=== PATIENT | male | born 1965 | race Caucasian/White ===

== ENCOUNTER → 2018-02-03 | Emergency (ER) | payer OTHER ==
[~2018-02-03] VITALS: Ht 170.2 cm; Wt 80.3 kg
[~2018-02-03] MED LIST: COZAAR50 MG
== END | disposition home or self-care (01) ==
LOC: ER 06:34
DX: K52.9 Noninfective gastroenteritis and colitis, unspecified (principal)

== ENCOUNTER 2025-05-13 06:15 | Day surgery (SDC) | payer OTHER ==
[2025-05-06 08:32] VITALS: BP 150/100
[2025-05-06 08:54] LABS: BASO % 0.5 % (0.1-1.2); EOS # 0.05 (0.04-0.54); EOS % 0.9 % (0.7-7.0); HEMOGLOBIN 14.2 g/dL (13.7-17.5); LYMPH # 1.54 (1.18-3.74); LYMPH % 27.6 % (19.3-53.1); MEAN CORPUSCULAR HEMOGLOBIN 31.8 pg (25.6-32.2); MONO # 0.46 (0.24-0.82); MONO % 8.2 % (4.7-12.5); NEUT # 3.49 (1.56-6.13); NEUT % 62.6 % (34.0-71.1); PLATELET COUNT 281 K/uL (163-369); RED BLOOD COUNT 4.47 M/uL (4.63-6.08); RED CELL DISTRIBUTION WIDTH 11.9 % (11.6-14.4)
[2025-05-06 09:22] LABS: INR 1.05; PARTIAL THROMBOPLASTIN TIME 26.4 SECONDS (22.0-34.0); PROTHROMBIN TIME 11.4 SECONDS (9.0-11.5)
[2025-05-06 09:26] LABS: ALBUMIN 3.8 gm/dL (3.4-5.0); BILIRUBIN TOTAL 0.54 mg/dL (0.3-1.2); CALCIUM 9.4 mg/dL (8.5-10.1); CREATININE SERUM 1.23 mg/dL (0.70-1.30); GFR 59.82; GLOBULINA 3.4 G/DL (2.4-3.5); POTASSIUM 4.28 mEq/L (3.5-5.1); TOTAL PROTEIN 7.2 gm/dL (6.4-8.2)
[~2025-05-13] VITALS: Ht 170.2 cm; Wt 80.7 kg
[~2025-05-13 06:15] MED LIST changes: +COZAAR25 MG PO
== END 2025-05-13 11:30 | disposition home or self-care (01) ==
LOC: CIR.AMB 06:15
PROVIDERS: ATTEND Internal Medicine
DX: K31.89 Other diseases of stomach and duodenum (principal); D37.1 Neoplasm of uncertain behavior of stomach; R93.3 Abnormal findings on diagnostic imaging of other parts of digestive tract; K44.9 Diaphragmatic hernia without obstruction or gangrene; Z88.0 Allergy status to penicillin